=== PATIENT | male | born 1970 | race Caucasian/White ===

== ENCOUNTER 2021-03-19 15:12 | Outpatient (CLI) | payer SELFPAY ==
--- NOTE | 2021-03-19 15:00 | USCV_ITS ---
Andrea Ford Age: 50 Gender: M : 1970 Exam Date: 03/19/2021 15:28 Ordering Phys: Soraya Rowell DATA CONTROL ASSISTANT-Emanuel Technologist: ERIC Exam Location: [facility] [place] Indication: PAIN IN LEFT LEG HISTORY: Lower extremity pain. PROCEDURES: Venous duplex imaging was performed in only the left lower extremity. The following venous structures were evaluated: common femoral vein, profunda vein, proximal portion of the greater saphenous vein, superficial femoral vein, and the popliteal vein. In addition, the posterior tibial and peroneal trunk were evaluated. FINDINGS: Normal 2-D Doppler and augmentation and compressibility throughout the lower extremity venous structures. Additional imaging through the proximal calf veins also reveals no thrombus. Limited evaluation of the greater saphenous vein is patent with no thrombus.. CONCLUSIONS No evidence of left lower extremity DVT. Tanmay Vilchis MD (Electronically Signed) Final Date: 20 March 2021 16:03 S
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
== END 2021-03-19 15:13 | disposition home or self-care (01) ==
LOC: RAD 15:13
PROVIDERS: PCP Nurse Practitioner Family; Visit Provider Nurse Practitioner Family
DX: M79.605 Pain in left leg (principal); M79.5 Residual foreign body in soft tissue; M79.89 Other specified soft tissue disorders
CPT/HCPCS: 73590; 80053; 85025; 93971

== ENCOUNTER 2021-03-30 14:52 | Outpatient (CLI) | payer SELFPAY ==
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
== END 2021-03-30 14:53 | disposition home or self-care (01) ==
PROVIDERS: PCP Nurse Practitioner Family; Visit Provider Nurse Practitioner Family
DX: M79.605 Pain in left leg (principal); M79.89 Other specified soft tissue disorders; M79.5 Residual foreign body in soft tissue
CPT/HCPCS: 73700

== ENCOUNTER 2021-09-09 11:51 | Emergency (ER) | payer MEDICAID, SELFPAY ==
[2021-09-09] VITALS (42 sets, daily range): BP systolic 148–193; BP diastolic 100–142; PULSE 72–93; RESP 13–27; O2SAT 82–100; BMI 37.0
--- NOTE | 2021-09-09 11:54 | CTR_ITS ---
PROCEDURE INFORMATION: Exam: CT Head Without Contrast Exam date and time: 09/09/2021 11:54 AM Age: 51 years old Clinical indication: Altered mental status/memory loss; Additional info: Stroke like symptoms TECHNIQUE: Imaging protocol: Computed tomography of the head without contrast. Total images: 216 Radiation optimization: All CT scans at this facility use at least one of these dose optimization techniques: automated exposure control; mA and/or kV adjustment per patient size (includes targeted exams where dose is matched to clinical indication); or iterative reconstruction. Other technique: STROKE PROTOCOL was implemented. COMPARISON: No relevant prior studies available. RADIATION DOSE METRICS: Total DLP (mGy-cm): 1284.14 FINDINGS: Brain: Loss of insular ribbon on the right and decreased light-white matter differentiation in the M 5 and M 6 area on the right may be artifactually created due to motion but an acute infarct cannot be excluded. Cerebral ventricles: No ventriculomegaly. Paranasal sinuses: Visualized sinuses are unremarkable. No fluid levels. Mastoid air cells: Visualized mastoid air cells are well aerated. Bones/joints: Unremarkable. No acute fracture. Soft tissues: Unremarkable. Other findings: Examination is motion limited. CT/CT head wo con* [id number] IMPRESSION: 1. Examination is motion limited. 2. Loss of insular ribbon on the right and decreased light-white matter differentiation in the M 5 and M 6 area on the right may be artifactually created due to motion but an acute infarct cannot be excluded. ASSESSMENT: ASPECTS ([place] Stroke Program Early CT Score) is 7. Radiation Dose CTDIVOL = (mGy): DLP = 1284.14 (mGy-cm)
--- NOTE | 2021-09-09 11:56 | ECG_ITS ---
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 Measurements Intervals [place] Rate: 82 P: 59 TN: 149 QRS: 54 QRSD: 110 T: 44 QT: 393 QTc: 459 Interpretive Statements SINUS RHYTHM POSSIBLE LEFT ATRIAL ENLARGEMENT [-0.1mV P-WAVE IN V1/V2] INFERIOR MYOCARDIAL INFARCTION , PROBABLY OLD [40+ ms Q WAVE AND/OR ST/T ABNORMALITY IN II/aVF] POSSIBLE ANTEROLATERAL MYOCARDIAL INFARCTION , OF INDETERMINATE AGE [30 ms Q WAVE IN I/aVL/V3-V6] Compared to ECG 08/06/2019 11:49:42 Ectopic atrial rhythm no longer present Myocardial infarct finding still present Electronically Signed On 09-09-2021 23:20:29 CDT by Earle Coto M.D. [email or web address]
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
--- NOTE | 2021-09-09 12:07 | CTR_ITS ---
PROCEDURE INFORMATION: Exam: CT Angiography Head With Contrast, Arteriography Exam date and time: 09/09/2021 12:07 PM Age: 51 years old Clinical indication: Weakness; Additional info: CVA TECHNIQUE: Imaging protocol: Computed tomography angiography of the head with contrast. Exam focused on the arteries. 3D rendering (Not supervised by radiologist): MIP and/or 3D reconstructed images were created by the technologist. Radiation optimization: All CT scans at this facility use at least one of these dose optimization techniques: automated exposure control; mA and/or kV adjustment per patient size (includes targeted exams where dose is matched to clinical indication); or iterative reconstruction. Contrast material: OMNI 350; Contrast volume: 95 ml; Contrast route: INTRAVENOUS (IV); COMPARISON: CT head wo con* [id number] 09/09/2021 11:52 AM RADIATION DOSE METRICS: Total DLP (mGy-cm): 2495.95 FINDINGS: ANTERIOR CIRCULATION: Right internal carotid artery: Stenosis or atresia just proximal to ECA bifurcation. Intracranial segment is not visible. Right middle cerebral artery: Unremarkable. No occlusion or significant stenosis. No aneurysm. This likely fills from the left cerebral circulation. Right anterior cerebral artery: Unremarkable. No occlusion or significant stenosis. No aneurysm. Left internal carotid artery: Unremarkable. Intracranial segment is patent with no significant stenosis. No aneurysm. Left middle cerebral artery: Unremarkable. No occlusion or significant stenosis. No aneurysm. Left anterior cerebral artery: The left proximal anterior cerebral artery is not visible. It is unclear if this corresponds to stenosis or atresia . This artery appears to reconstitute distally likely due to collaterals. No aneurysm. POSTERIOR CIRCULATION: Right vertebral artery: Unremarkable. No occlusion or significant stenosis. No aneurysm. Left vertebral artery: Unremarkable. No occlusion or significant stenosis. No aneurysm. Basilar artery: Unremarkable. No occlusion or significant stenosis. No aneurysm. Right posterior cerebral artery: Unremarkable. No occlusion or significant stenosis. No aneurysm. Left posterior cerebral artery: Unremarkable. No occlusion or significant stenosis. No aneurysm. Brain: No definite mass, mass effect, or midline shift. Cerebral ventricles: No ventriculomegaly. Bones/joints: Unremarkable. No acute fracture. Soft tissues: There is intraluminal filling defect within the proximal straight sinus . New lines this finding has sagittal measurements of 12 mm x 5 mm. This finding is likely due to intraluminal thrombus. IMPRESSION: 1. 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 2. The right intracranial carotid artery is not visualized. 3. The right middle cerebral artery is unremarkable due to collaterals . 4. There is a filling defect seen proximal straight sinus likely thrombus. 5. There is atresia or stenosis in the proximal left anterior cerebral artery . PROCEDURE INFORMATION: Exam: CT Angiography Neck With Contrast Exam date and time: 09/09/2021 12:07 PM Age: 51 years old Clinical indication: Weakness; Additional info: CVA TECHNIQUE: Imaging protocol: Computed tomography angiography of the neck with contrast. 3D rendering (Not supervised by radiologist): MIP and/or 3D reconstructed images were created by the technologist. Radiation optimization: All CT scans at this facility use at least one of these dose optimization techniques: automated exposure control; mA and/or kV adjustment per patient size (includes targeted exams where dose is matched to clinical indication); or iterative reconstruction. Contrast material: OMNI 350; Contrast volume: 95 ml; Contrast route: INTRAVENOUS (IV); COMPARISON: CT head wo con* [id number] 09/09/2021 11:52 AM RADIATION DOSE METRICS: Total DLP (mGy-cm): 2495.95 FINDINGS: Right common carotid artery: No stenosis. No dissection or occlusion. Right internal carotid artery: Complete occlusion stenosis or atresia aspect Right external carotid artery: No occlusion or stenosis of the origin. Left common carotid artery: No stenosis. No dissection or occlusion. Left internal carotid artery: No stenosis of the extracranial segment. No dissection or occlusion. Left external carotid artery: No occlusion or stenosis of the origin. Right vertebral artery: No stenosis. No dissection or occlusion. Left vertebral artery: No stenosis. No dissection or occlusion. Soft tissues: Normal. No significant soft tissue swelling. Bones/joints: No acute fracture. CT/CT angio headneck* [id number] IMPRESSION: 1. Complete occlusion right ICA near is proximal aspect. 2. Otherwise negative examination. REFERENCES: NASCET CRITERIA. The degree of internal carotid artery stenosis is based on NASCET criteria. Normal is no stenosis. Mild is less than 50% stenosis. Moderate is 50-69% stenosis. Severe is 70% to 99% stenosis. Total occlusion is no detectable patent lumen. Radiation Dose CTDIVOL = (mGy): DLP = 2495.95~2495.95 (mGy-cm)
[2021-09-09 12:18] LABS: Basophils # 0.1 10^3/uL (0.0-0.1); Basophils % 0.5 %; Eosinophils # 0.1 10^3/uL (0.0-0.8); Eosinophils % 0.6 %; Hematocrit 45.5 % (42.0-52.0); Hemoglobin 15.1 g/dL (11.7-16.6); Lymphocytes % 16.7 %; Mean Corpuscular HGB Conc 33.2 g/dL (30.0-36.0); Mean Corpuscular Hemoglobin 29.5 pg (28.0-34.0); Mean Platelet Volume 9.5 fL (7.4-10.4); Monocytes # 0.9 10^3/uL (0.2-0.9); Monocytes % 7.2 %; Neutrophils # 8.87 10^3/uL (1.8-7.7); Neutrophils % 74.7 %; Nucleated Red Blood Cells % 0 %; Platelet Count 287 10^3/cmm (130-400); Red Blood Count 5.11 10^6/uL (4.1-5.3); Red Cell Distribution Width 13.5 % (12.1-15.1); White Blood Count 11.9 10^3/uL (4.0-10.0)
[2021-09-09 12:24] LABS: INR 0.89 (0.8-1.2)
[2021-09-09 12:25] LABS: Partial Thromboplastin Time 26.2 SECONDS (23.9-36.7)
[2021-09-09 12:31] LABS: Alanine Aminotransferase 24 U/L (0-41); Albumin Level 3.7 g/dL (3.5-5.2); Alkaline Phosphatase 100 IU/L (40-130); Anion Gap 13.1 (5-19); Aspartate Amino Transferase 22 U/L (0-40); Blood Urea Nitrogen 12 mg/dL (6-20); Carbon Dioxide 26 mmol/L (22-29); Chloride 103 mmol/L (98-107); Glomerular Filtration Rate 140.9 mL/min (90-130); Glucose 103 mg/dL (65-115); Osmolality Calculated 286 mOsm/kg (285-295); Potassium 4.1 mmol/L (3.5-5.1); Sodium 138 mmol/L (136-145); Total Bilirubin 0.2 mg/dL (0.15-1.2); Total Protein 6.7 g/dL (6.6-8.7)
[2021-09-09] MEDS: LORazepam 2 mg/mL INJ 1 mL 1 MG IVP ×2 (12:48→13:07)
[2021-09-09 12:49] LABS: Amphetamines Screen Urine Positive (Negative); Barbiturates Screen Urine Negative (Negative); Benzodiazepines Screen Urine Negative (Negative); Cocaine Screen Urine Negative (Negative); Opiate Screen Urine Negative (Negative); PCP Screen Urine Negative (Negative); THC Screen Urine Positive (Negative)
[2021-09-09 12:51] LABS: Bilirubin Urine Neg (Negative); Blood Urine 2+ (Negative); Glucose Urine UA Norm (Normal); Ketones Urine Negative (Negative); Leukocyte Esterase Urine Negative (Negative); Nitrate Urine Negative (Negative); Protein Urine Neg (Negative); Specific Gravity, Urine 1.025 (1.005-1.030); Urine Appearance Clear (CLEAR); Urine Color Yellow (Yellow); Urobilinogen Urine Norm (Negative); pH Urine 6 (5-7)
[2021-09-09 12:52] LABS: Add Urine Microscopic? YES
[2021-09-09 12:53] LABS: Bacteria Urine TRACE /hpf; Mucus Urine TRACE /hpf; Squamous Epithelial Cell Urine RARE /hpf (0-5)
[2021-09-09 12:54] LABS: Add Urine Culture? No
[2021-09-09] MEDS: aspirin 300 mg Supp PR (13:26)
[2021-09-09] MEDS: LORazepam 2 mg/mL INJ 1 mL IVP ×2 (13:33→13:55)
[2021-09-09] MEDS: haloperidol inj 5 mg/mL INJ 1 mL IM (13:34)
--- NOTE | 2021-09-09 13:37 | ECG_ITS ---
[facility] Test Date: 2021-09-09 Pat Name: Andrea Ford Department: Room: Gender: Male Dental Aide: : 1970 Requested By: Bolivar Gongora Order Number: [id number] Reading MD: Earle Coto M.D. Measurements Intervals [place] Rate: 89 P: 54 VA: 153 QRS: 53 QRSD: 108 T: 27 QT: 421 QTc: 515 Interpretive Statements SINUS RHYTHM WITH FREQUENT SUPRAVENTRICULAR PREMATURE COMPLEXES ANTERIOR MYOCARDIAL INFARCTION , OF INDETERMINATE AGE [40+ ms Q WAVE AND/OR ST/T ABNORMALITY IN V3/V4] INFERIOR MYOCARDIAL INFARCTION , PROBABLY OLD [40+ ms Q WAVE AND/OR ST/T ABNORMALITY IN II/aVF] Compared to ECG 09/09/2021 12:04:05 No significant changes Electronically Signed On 09-09-2021 23:18:48 CDT by Earle Coto M.D. [email or web address] Networksregency [facility] [email or web address]/store/[id number] f
[2021-09-09] MEDS: LORazepam 2 mg/mL INJ 1 mL (13:54)
[2021-09-09 14:01] LABS: Troponin(5th) Baseline 7 ng/L (0-15)
[2021-09-09] MEDS: iohexol 350 mg/mL 100 mL Btl IV (14:03)
[2021-09-09 14:20] LABS: Glucose Point of Care 90 mg/dL (70-110)
[2021-09-09 14:23] LABS: Troponin 5 2HR 6.79 ng/L (0-15)
[2021-09-09 14:26] LABS: Troponin 5 2HR Delta -0.21 ABS# (0-10)
--- NOTE | 2021-09-09 15:37 | ECG_ITS ---
[facility] Test Date: 2021-09-09 Pat Name: Andrea Ford Department: Room: Gender: Male Lay Out Technician: : 1970 Requested By: Bolivar Gongora Order Number: [id number] Humberto MD: Earle Coto M.D. Measurements Intervals [place] Rate: 84 P: 64 AK: 146 QRS: 52 QRSD: 104 T: 45 QT: 377 QTc: 447 Interpretive Statements SINUS RHYTHM POSSIBLE LEFT ATRIAL ENLARGEMENT [-0.1mV P-WAVE IN V1/V2] INFERIOR MYOCARDIAL INFARCTION , OF INDETERMINATE AGE [40+ ms Q WAVE AND/OR ST/T ABNORMALITY IN II/aVF] Compared to ECG 09/09/2021 12:04:05 No significant changes Electronically Signed On 09-09-2021 23:23:12 CDT by Earle Coto M.D. [id number] f
== END 2021-09-09 16:14 | disposition short-term general hospital (02) ==
PROVIDERS: Emergency Provider Emergency Medicine; PCP Nurse Practitioner Family
DX: I63.9 Cerebral infarction, unspecified (principal); F15.10 Other stimulant abuse, uncomplicated; F17.210 Nicotine dependence, cigarettes, uncomplicated
CPT/HCPCS: 36416; 70450; 70496; 70498; 80053; 80306; 81001; 82962; 84484; 85025; 85610; 85730; 93005; 96372; 96374; 96376; 99291; 99292; J1630; J2060; Q9967

== ENCOUNTER 2021-10-18 11:53 | Emergency (ER) | payer MEDICAID, SELFPAY ==
--- NOTE | 2021-10-18 11:57 | ECG_ITS ---
[facility] Test Date: 2021-10-18 Pat Name: Andrea Ford Department: Room: Gender: Male Gyroscopic Engineering Technician: : 1970 Requested By: Jarek Moreno Order Number: [id number] Humberto MD: Lynn Hess M.D. Measurements Intervals [place] Rate: 82 P: 28 WV: 154 QRS: -9 QRSD: 104 T: 70 QT: 385 QTc: 450 Interpretive Statements SINUS RHYTHM INFERIOR MYOCARDIAL INFARCTION , OF INDETERMINATE AGE [40+ ms Q WAVE AND/OR ST/T ABNORMALITY IN II/aVF] ANTEROLATERAL MYOCARDIAL INFARCTION , OF INDETERMINATE AGE [40+ ms Q WAVE IN I/aVL/V3-V6] Compared to ECG 09/09/2021 15:39:48 No significant changes Electronically Signed On 10-19-2021 16:13:39 TECHNICAL PUBLICATIONS MANAGER by Lynn Hess M.D. [email or web address] [email or web address] [facility].fintonic/store/NU/[id number]/[id number] f
--- NOTE | 2021-10-18 11:57 | XR_ITS ---
WS: [id number] Exam: XR chest 1V portable [id number] Date/Time of Exam: 10/18/2021 11:59 AM Reason For Exam: chest pain Findings: The lungs are clear and fully expanded. Costophrenic angles are sharp. No infiltrates. Bronchovascula r relief appears normal. Cardiac silhouette is unremarkable. Bony elements are intact. XR/XR chest 1V portable [id number] IMPRESSION: Unremarkable chest radiograph.
[2021-10-18 11:58] VITALS: BP 130/87; PULSE 83; RESP 16; TEMP 36.8; O2SAT 96; BMI 36.5
[2021-10-18] MEDS: aspirin 81 mg Chew Tablet 324 MG PO (12:23)
[2021-10-18 12:43] LABS: Basophils # 0.1 10^3/uL (0.0-0.1); Basophils % 0.9 %; Eosinophils # 0.2 10^3/uL (0.0-0.8); Eosinophils % 2.4 %; Hematocrit 42.5 % (42.0-52.0); Hemoglobin 13.9 g/dL (11.7-16.6); Lymphocytes # 2.3 10^3/uL (0.8-4.8); Lymphocytes % 29.8 %; Mean Corpuscular HGB Conc 32.7 g/dL (30.0-36.0); Mean Corpuscular Hemoglobin 29.4 pg (28.0-34.0); Mean Corpuscular Volume 89.9 fl (80-94); Monocytes # 0.7 10^3/uL (0.2-0.9); Monocytes % 9.5 %; Neutrophils # 4.33 10^3/uL (1.8-7.7); Nucleated Red Blood Cells % 0 %; Platelet Count 348 10^3/cmm (130-400); Red Blood Count 4.73 10^6/uL (4.1-5.3); White Blood Count 7.6 10^3/uL (4.0-10.0)
--- NOTE | 2021-10-18 13:10 | W.ED.CHESTPA ---
HPI - Chest Pain General: Chief Complaint: Chest Pain Stated Complaint: CHEST PAIN Time Seen by Provider: 10/18/21 11:57 History of Present Illness: HPI narrative: 51-year-old male presents emergency room complaining of chest discomfort that began while at rest. No radiation of the pain started several hours ago. 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 Is not currently having chest pain now. No report of shortness of breath no diaphoresis no vomiting. MD complaint: chest discomfort Onset (ago): hour(s) Timing of current episode: episodic Prior episodes: Yes Onset: during rest Pain location: left chest Pain radiation: none Severity: mild Quality: tightness and heaviness Relieving factors: nothing Exacerbating factors: nothing Associated symptoms: Deny abdominal pain, diaphoresis, dyspnea, fever(s), leg edema, nausea, palpitations, sense of impending doom, syncope or vomiting Review of Systems Const: Denies: fever(s) or diaphoresis ENMT: Denies: throat pain, ear or mastoid pain, nasal discharge or nasal congestion Card: Denies: palpitations or syncope Resp: Denies: dyspnea GI: Denies: abdominal pain, nausea or vomiting : Denies: flank pain, dysuria, urinary frequency or urinary urgency Skin/Breast: Denies: rash or pruritus PFSH ED PFSH: Surgical History No history of previous surgery Family History Other Hypertension Denies family history of Diabetes Dementia Cancer Social History Smoking and tobacco status: current every day smoker Second hand smoke exposure: Yes Smoking risk assessment/counseling performed?: Yes Alcohol intake: former Desire information about alcohol rehabilitation?: No Counseling given: No Desire information about substance/drug rehabilitation?: No Counseling given: No Adopted: No Caregiver/support person: No Lives independently: Yes Household members: none Housing: House Marital status: Single Number of children: 2 service: Yes branch: [employer] Current occupational status: employed Pets and animals: No History of recent travel: No Current gender identity: Male Physical Exam Const: COMMON NORMALS: no acute distress GENERAL APPEARANCE: cooperative and comfortable ORIENTATION/CONSCIOUSNESS: Yes awake, Yes oriented to person, Yes oriented to place and Yes oriented to time HENMT: COMMON NORMALS: normocephalic, atraumatic, hearing grossly normal bilaterally and external ears normal HEAD & SCALP: normocephalic and atraumatic EXTERNAL EAR: Yes external ears normal Neck/C-Spine: COMMON NORMALS: no JVD Resp: COMMON NORMALS: normal respiratory effort, No retractions, No use of accessory muscles and clear to auscultation bilaterally AUSCULTATION: clear to auscultation bilaterally Cardio: COMMON NORMALS: no JVD, regular rate, regular rhythm and No murmurs present (Cardio) RATE: regular rate RHYTHM: regular rhythm GI: COMMON NORMALS: Soft to palpation and No hepatosplenomegaly present AUSCULTATION: Yes normoactive bowel sounds PALPATION: Yes Soft to palpation, No Tenderness to palpation present (GI), No Guarding due to palpation present (GI) and Yes No hepatosplenomegaly present Extremity: COMMON NORMALS: normal to inspection, capillary refill normal, no clubbing, cyanosis or edema, no calf tenderness and no pedal edema Neuro: SENSORIUM/ORIENTATION: Yes oriented to person, Yes oriented to place and Yes oriented to time Skin: COMMON NORMALS: no rashes or lesions noted GENERAL SKIN EXAM: no rashes or lesions noted Course Vital Signs: Vital signs: Vital Signs Temperature 98.2 F 10/18/21 11:58 Pulse Rate 91 10/18/21 18:03 Respiratory Rate 20 H 10/18/21 18:03 Blood Pressure 128/88 10/18/21 18:03 Pulse Oximetry 92 10/18/21 16:21 MDM - Chest Pain MDM Narrative: Medical decision making narrative: Patient has a history of previous CVA. He is complaining of chest pain today troponins and EKG reviewed we will go ahead and discharge patient home. He denies any chest pain at the time of discharge. We will make arrangements for outpatient Lexiscan sestamibi stress test Lab Data: Labs: Lab Results 10/18/21 10/18/21 10/18/21 12:10 12:10 12:10 WBC 7.6 10^3/uL 10^3/ uL (4.0-10.0) RBC 4.73 10^6/uL 10^6 /uL (4.1-5.3) Hgb 13.9 g/dL g/dL (11.7-16.6) Hct 42.5 % % (42.0-52.0) MCV 89.9 fl fl (80-94) MCH 29.4 pg pg (28.0-34.0) MCHC 32.7 g/dL g/dL (30.0-36.0) RDW 13.0 % % (12.1-15.1) Plt Count 348 10^3/cmm 10^3 /cmm (130-400) MPV 10.0 fL fL (7.4-10.4) Neut % (Auto) 57.0 % % Lymph % (Auto) 29.8 % % [place] % (Auto) 9.5 % % Eos % (Auto) 2.4 % % Baso % (Auto) 0.9 % % Neut # (Auto) 4.33 10^3/uL 10^3 /uL (1.8-7.7) Lymph # (Auto) 2.3 10^3/uL 10^3/ uL (0.8-4.8) [place] # (Auto) 0.7 10^3/uL 10^3/ uL (0.2-0.9) Eos # (Auto) 0.2 10^3/uL 10^3/ uL (0.0-0.8) Baso # (Auto) 0.1 10^3/uL 10^3/ uL (0.0-0.1) Nucleated RBC % (a uto) 0 % % Nucleated RBCs # 0.0 /100WBC /100W BC Sodium 138 mmol/L mmol/L (136-145) Potassium 4.3 mmol/L mmol/L (3.5-5.1) Chloride 101 mmol/L mmol/L (98-107) Carbon Dioxide 25 mmol/L mmol/L (22-29) Anion Gap 16.3 (5-19) BUN 12 mg/dL mg/dL (6-20) Creatinine 0.6 mg/dL L mg/dL (0.7-1.2) GFR Calculation 140.9 mL/min H mL /min (90-130) Glucose 94 mg/dL mg/dL (65-115) Calculated Osmolal ity 286 mOsm/kg mOsm/ kg (285-295) Calcium 8.4 mg/dL L mg/dL (8.5-10.5) Total Bilirubin 0.3 mg/dL mg/dL (0.15-1.2) AST 32 U/L U/L (0-40) ALT 71 U/L H U/L (0-41) Alkaline Phosphata se 86 IU/L IU/L (40-130) Troponin T Baselin e 11 ng/L ng/L (0-15) Troponin T 120 Min meka Delta Troponin T Total Protein 6.1 g/dL L g/dL (6.6-8.7) Albumin 3.5 g/dL g/dL (3.5-5.2) Globulin 2.6 g/dL g/dL (1.3-4.6) 10/18/21 14:30 WBC RBC Hgb Hct MCV MCH MCHC RDW Plt Count MPV Neut % (Auto) Lymph % (Auto) [place] % (Auto) Eos % (Auto) Baso % (Auto) Neut # (Auto) Lymph # (Auto) [place] # (Auto) Eos # (Auto) Baso # (Auto) Nucleated RBC % (a uto) Nucleated RBCs # Sodium Potassium Chloride Carbon Dioxide Anion Gap BUN Creatinine GFR Calculation Glucose Calculated Osmolal ity Calcium Total Bilirubin AST ALT Alkaline Phosphata se Troponin T Baselin e Troponin T 120 Min [place] 10.11 ng/L ng/L (0-15) Delta Troponin T -0.89 ABS# L ABS# (0-10) Total Protein Albumin Globulin Discharge Plan Discharge Patient Disposition: Home Clinical Impression: Atypical chest pain, Acute CVA (cerebrovascular accident) Condition: Stable Prescriptions: No Action omeprazole 20 mg capsule,delayed release(DR/EC) 20 mg PO DAILY PRN (Reason: Acid Reflux) RF: 0 Discharge Orders: Discharge ED (Routine); Ordered 10/18/21 Ordered By: Jarek Gamez Referrals: Soraya Rowell FNP-C [Primary Care Provider] - Discharge Diet: Usual diet Discharge Activity: Resume usual activity Patient Instructions: Opioid Safety Activity Restrictions/Additional Instructions: business relationship manager will make arrangements for an outpatient Lexiscan sestamibi stress test Coding Level of Care Code ED Back Roller for Chg Fwd Exam Comprehensive
[2021-10-18 13:14] LABS: Troponin(5th) Baseline 11 ng/L (0-15)
[2021-10-18 13:16] LABS: Alanine Aminotransferase 71 U/L (0-41); Albumin Level 3.5 g/dL (3.5-5.2); Alkaline Phosphatase 86 IU/L (40-130); Anion Gap 16.3 (5-19); Aspartate Amino Transferase 32 U/L (0-40); Blood Urea Nitrogen 12 mg/dL (6-20); Calcium 8.4 mg/dL (8.5-10.5); Carbon Dioxide 25 mmol/L (22-29); Chloride 101 mmol/L (98-107); Globulin 2.6 g/dL (1.3-4.6); Glomerular Filtration Rate 140.9 mL/min (90-130); Glucose 94 mg/dL (65-115); Osmolality Calculated 286 mOsm/kg (285-295); Potassium 4.3 mmol/L (3.5-5.1); Sodium 138 mmol/L (136-145); Total Bilirubin 0.3 mg/dL (0.15-1.2); Total Protein 6.1 g/dL (6.6-8.7)
[2021-10-18] MEDS: nitroglycerin 1 gm/inch oint Pkt 1 INCH TOPICAL (13:18)
--- NOTE | 2021-10-18 13:57 | ECG_ITS ---
[facility] Test Date: 2021-10-18 Pat Name: Andrea Ford Department: Room: Gender: Male Hr Associate: : 1970 Requested By: Jarek Moreno Order Number: [id number] Humberto MD: Lynn Hess M.D. Measurements Intervals [place] Rate: 85 P: 25 [place]: 128 QRS: 12 QRSD: 99 T: 40 QT: 390 QTc: 465 Interpretive Statements SINUS RHYTHM INFERIOR MYOCARDIAL INFARCTION , OF INDETERMINATE AGE [40+ ms Q WAVE AND/OR ST/T ABNORMALITY IN II/aVF] Compared to ECG 10/18/2021 12:15:37 No significant changes Electronically Signed On 10-19-2021 16:16:36 EAP SPECIALIST by Lynn Hess M.D. [id number]
[2021-10-18 15:12] LABS: Troponin 5 2HR 10.11 ng/L (0-15)
[2021-10-18 15:18] LABS: Troponin 5 2HR Delta -0.89 ABS# (0-10)
[2021-10-18 15:48] VITALS: BP 110/88; PULSE 75; RESP 16; O2SAT 96
--- NOTE | 2021-10-18 16:01 | PC.NURSE ---
[facility] care facility calling for update, staff advised ot is discharged back and will need a ride. Staff advised this RN they do not have transportation for pt, this RN advised staff pt is self pay and [facility] will be responsible for paying for ambulance ride back to care facility. Staff advised this RN they will need to talk with the DON and get back to us. Staff calling back from [facility] advising they have someone that will come and pick pt up; however they are unable to give an ETA. Staff advised pt will be in the room until they arrive to transport him back to care facility.
[2021-10-18 16:21] VITALS: BP 129/80; PULSE 76; RESP 10; O2SAT 92
[2021-10-18 18:03] VITALS: BP 128/88; PULSE 91; RESP 20
--- NOTE | 2021-10-18 18:27 | PC.NURSE ---
This RN called and spoke with Bita from [facility] to determine ETA of pts ride, advised by Bita transport is leaving now to come get pt, ETA of 45 minutes to 1 hour given
--- NOTE | 2021-10-18 18:38 | PC.NURSE ---
Pt repeatedly taking leads off for the monitor, this RN requesting pt keep his leads on so we can monitor how his vs are throughout the day without success. Pt had a gown on and is refusing to keep goen on as well.
--- NOTE | 2021-10-19 06:41 | PC.NURSE ---
Ronda Huertas assumed care for this patient at 1900.
--- NOTE | 2021-10-19 12:19 | DCPLANNER ---
manager unix had message to schedule an outpatient stress test for patient. manager unix faxed signed order to centralized scheduling, who will call patient with appointment information.
--- NOTE | 2021-11-12 07:51 | DCPLANNER ---
Patient has an out patient stress test scheduled for October at 10:00. Centralized scheduling will call patient with appointment information.
--- NOTE | 2021-11-29 14:23 | DCPLANNER ---
Patient had an out patient stress test scheduled - patient did attend appointment.
== END 2021-10-18 19:39 | disposition home or self-care (01) ==
PROVIDERS: Emergency Provider Family Medicine; PCP Nurse Practitioner Family
DX: R07.89 Other chest pain (principal); F17.210 Nicotine dependence, cigarettes, uncomplicated; I63.9 Cerebral infarction, unspecified
CPT/HCPCS: 36415; 71045; 80053; 84484; 85025; 93005; 99283

== ENCOUNTER 2021-11-15 07:44 | Outpatient (CLI) | payer MEDICAID, SELFPAY ==
[2021-11-15 08:37] VITALS: BMI 31.5
--- NOTE | 2021-11-15 08:37 | ECG_ITS ---
[facility] Test Date: 2021-11-15 Pat Name: Andrea Ford Department: Room: Gender: Male Livestock Farmer: Lela Munoz : 1970 Requested By: Jarek Moreno Order Number: [id number] Humberto MD: ANDREW HUERTA Interpretive Statements NAME OF STUDY: LEXISCAN SESTAMIBI STRESS TEST INDICATION: Chest Pain, NOTE: Please note that this is the electrocardiogram portion of the Lexiscan/Sestamibi stress test. The perfusion scan will be documented separately. DATA: Baseline heart rate was 78 beats per minute. Baseline blood pressure was 102/47 millimeters of mercury. Target heart rate was 167. Maximum heart rate achieved was 117. which was 70% of the predicted target heart rate. Maximum blood pressure was 212/101 millimeters of mercury. The reason for ending the test was completion of the protocol. The patient did not experience any symptoms. ELECTROCARDIOGRAM: BASELINE: Sinus rhythm. Normal axis. Otherwise, no ST-T changes suggestive of ischemia noted. No arrhythmia noted. EXERCISE: After Lexiscan injection, no ST-T changes suggestive of ischemic noted. No arrhythmia noted. PVCs noted. CONCLUSION: Please note due to baseline abnormality of the EKG specificity and sensitivity of the EKG portion of LexiScan MIBI stress test will be low 1. EKG not suggestive of ischemia 2. Lexiscan injection unremarkable. 3. Perfusion scan will be documented separately. Electronically Signed On 11-20-2021 21:54:04 SEAM FINISHER by ANDREW HUERTA [email or web address]/[id number]
--- NOTE | 2021-11-15 08:38 | NMCV_ITS ---
NM etelvina perf SPECT r/s* [id number] Andrea Ford Age: 51 Gender: M : 1970 Exam Date: 11/15/2021 09:08 Ordering Phys: Jarek Gamez DO Technologist: HELEN Carl Exam [facility] Indications: CHEST PAIN STRESS TEST [facility] IMAGE PROTOCOL Rest/Stress 1 Lexiscan Day Radiopharmaceutical Dose (mCi) Administration Site Administered by Rest: Tc-99m 10.8 IV HELEN Carl Sestamibi Stress:Tc-99m 32.7 IV HELEN Pickett Sestamibi Rest: 15-Nov-2021 60 Discovery 630 Stress: 15-Nov-2021 30 Discovery 630 0.4mg Lexiscan. Supine position only as patient was unable to lay prone. SPECT RESULTS Technical Quality: Excellent Raw Data Analysis: Normal Image Corrections: No attenuation or motion correction applied Summed Stress Score: 23 Summed Rest Score: 19 Summed Difference Score: 6 PERFUSION FINDINGS Large area of fixed perfusion defect noted in basal to distal inferior and basal to distal inferolateral wall suggestive of old myocardial infarction versus scarring with mild reversibility suggestive of mild amisha-infarct FUNCTIONAL RESULTS (calculated via Gated SPECT) Stress Image LV EF (%): 46 Stress EDV (mL):112 TID: 0.9 Stress ESV (mL):60 Rest Image LV EF (%): 46 FUNCTIONAL FINDINGS: Inferior inferolateral wall akinesis IMPRESSIONS Large area of old myocardial infarction noted in basal to distal inferior and basal to distal inferolateral wall surrounded by mild amisha-infarct ischemia. EKG segment will be documented separately. Antelmo Curtis MD (Electronically Signed) Final Date: 15 November 2021 19:30 S
[2021-11-15] MEDS: regadenoson 0.4 Mg/5 ml Syringe IVP (10:28)
[2021-11-15 10:37] VITALS: BP 122/65; PULSE 99
== END 2021-11-15 07:45 | disposition home or self-care (01) ==
LOC: CDL 07:48
PROVIDERS: PCP Internal Medicine; Visit Provider Family Medicine
DX: R07.9 Chest pain, unspecified (principal); I25.2 Old myocardial infarction; R06.02 Shortness of breath
CPT/HCPCS: 78452; 93017; A9500; J2785

== ENCOUNTER → 2023-11-05 09:38 | Outpatient (BNVA) | payer MEDICAID, SELFPAY | PROVIDERS: PCP Internal Medicine; Referring Provider Internal Medicine; Visit Provider Specialist | DX: I63.231 Cerebral infarction due to unspecified occlusion or stenosis of right carotid arteries (principal); R56.9 Unspecified convulsions | CPT/HCPCS: 99205 ==

== ENCOUNTER 2023-12-04 09:34 | Outpatient (CLI) | payer MEDICAID, SELFPAY ==
[2023-12-04] MEDS: iohexol 350 mg/mL 500 mL Btl (per mL) IV (10:11)
--- NOTE | 2023-12-04 10:30 | CT_ITS ---
WS: [id number] CT ANGIOGRAM CEREBRAL AND CAROTID ARTERIES HISTORY: I63.9 - Cerebral infarction, unspecified TECHNIQUE: CT angiogram is performed of the carotid and cerebral arteries. During arterial injection imaging is obtained from the skull vertex to the aortic arch in 1.25 mm imaging. Coronal and sagittal reformats are submitted. Additional multi planar reformats of the carotid and cerebral arteries are submitted, MIP imaging also reviewed. NASCET criteria utilized. All CT scans at [facility] [employer] [facility] e at least one of these dose optimization techniques: automated exposure control; mA and/or kV adjust ment per patient size (includes targeted exams where dose is matched to clinical indication); or iter ative reconstruction. CONTRAST: Omnipaque 350; 100 mL IV. DLP: 1269.03 mGy.cm COMPARISON: CT head 09/24/2021 and angio 09/09/2021 Large remote RIGHT MCA territory infarct with encephalomalacia. Ex vacuo dilatation of the RIGHT late ral ventricle. Bilateral volume loss and mild small vessel ischemic disease otherwise. No acute intra cranial hemorrhage. Extensive motion artifact during the CT angiogram portion of the exam. Carotid Angiogram: Right carotid: Common carotid artery: Arises normally from the innominate. Small caliber but patent common carotid a rtery. At the cervical carotid bifurcation there is contrast opacification in both the internal and e xternal carotid arteries. Internal carotid artery: Small caliber internal carotid artery but it is patent. Patency was not demo nstrated on the prior angiogram of 09/09/2021. Very small caliber RIGHT intracranial ICA extending th rough the horizontal portion and through the cavernous sinus. Nearly occluded completely occluded thr ough the cavernous sinus. External carotid artery: Patent. Left carotid: Common carotid artery: Motion artifact in the upper thorax. Patent cervical carotid artery. Internal carotid artery: No significant stenosis. Limited by motion. External carotid artery: Patent. Right vertebral artery: Unremarkable. Left vertebral artery: Unremarkable. Arises normally from the subclavian artery. Subclavian arteries: No stenosis or significant abnormality. Upper thorax: Suboptimal by motion artifact. Thyroid gland: Normal. Osseous structures: Unremarkable. CEREBRAL ANGIOGRAM: Intracranial vertebral arteries: Normal with no significant atherosclerosis. Basilar artery: No significant stenosis or occlusion. No aneurysm. Intracranial Internal carotid arteries: Very small caliber intracranial RIGHT ICA. Caliber becomes ma rkedly decreased through the cavernous portion of the carotid artery and is nearly completely occlude d. Involving the supraclinoid RIGHT ICA no definite contrast opacification is identified. Middle cerebral arteries: Small caliber but patent RIGHT middle cerebral artery. There is robust enha ncement through the RIGHT A1 cerebral artery. There is also contrast opacification of the RIGHT poste rior communicating artery. Paucity of vessels throughout the RIGHT middle cerebral artery distally. P atent LEFT middle cerebral artery. No aneurysm. No significant plaque. Anterior cerebral arteries and ACOM: Normal. Posterior cerebral arteries and PCOM's: Normal. Dural venous sinuses are normally enhancing. Mastoid air cells: Normal. Paranasal sinuses: Normal. Calvarium: Normal. IMPRESSION: 1. Small caliber, long segment RIGHT cervical ICA with extension into the intracranial carotid arter y. Contrast opacification becomes significantly decreased in the cavernous carotid artery. No definit e opacification in the RIGHT supraclinoid carotid artery. There is recanalization of the carotid aiden ry as compared to the prior angiogram from 09/09/2021. 2. Small caliber but patent RIGHT MCA territory. The RIGHT A1 segment and the RIGHT posterior commun icating artery are both patent. 3. Large remote RIGHT MCA territory infarct with encephalomalacia and ex vacuo dilatation of the RIG HT lateral ventricle.
== END 2023-12-04 09:35 | disposition home or self-care (01) ==
LOC: RAD 09:34
PROVIDERS: PCP Internal Medicine; Visit Provider Specialist
DX: I63.9 Cerebral infarction, unspecified (principal); G93.89 Other specified disorders of brain
CPT/HCPCS: 70496; 70498; Q9967